=== PATIENT | female | born 1965 | race African-American/Black ===

== ENCOUNTER 2019-05-27 20:52 | Emergency (ER) | payer OTHER ==
[~2019-05-27] VITALS: Ht 180.3 cm; Wt 106.0 kg
[2019-05-27] MEDS ORDERED: SODIUM CHLORIDE 0.9% 1,000 ML IV ONE (22:00)
[2019-05-27] MEDS ORDERED: ONDANSETRON HCL 4MG/2ML INJ IV STA (22:00)
[2019-05-27 23:12] LABS: BASOPHILS % 0.6 % (0.0-2.0); EOSINOPHILS % 0.1 % (0.0-5.0); HEMATOCRIT. 41.2 % (36.0-48.0); HEMOGLOBIN. 13.4 g/dL (12.0-16.0); MEAN CORPUSCULAR HEMOGLOBIN 27.8 pg (28.0-32.0); MEAN CORPUSCULAR VOLUME 85.2 fL (81.0-99.0); MEAN PLATELET VOLUME 9.7 fl (7.4-10.4); MONOCYTES % 8.3 % (2.0-8.0); PLATELET 211 x1000/uL (130-400); RED BLOOD CELL COUNT 4.83 mill/uL (4.2-5.4); RED CELL DISTRIBUTION WIDTH 13.3 % (11.6-14.6)
[2019-05-27 23:24] LABS: CHLORIDE 95 mEq/L (98-107)
[2019-05-28] MEDS ORDERED: INSULIN LISPRO 100 UNITS/ML SUBCUT ONE (01:30)
[2019-05-28 05:07] VITALS: BP 93/60
== END 2019-05-28 06:04 | disposition short-term general hospital (02) ==
LOC: ER 20:52 → CANBEDREQ 05-28 07:02
DX: N17.9 Acute kidney failure, unspecified (principal); E86.0 Dehydration; E11.65 Type 2 diabetes mellitus with hyperglycemia; R55 Syncope and collapse; I10 Essential (primary) hypertension; Z98.890 Other specified postprocedural states; Z88.0 Allergy status to penicillin; W01.198A Fall on same level from slipping, tripping and stumbling with subsequent striking against other object, initial encounter; Y93.89 Activity, other specified; Y92.012 Bathroom of single-family (private) house as the place of occurrence of the external cause
CPT/HCPCS: 36415; 71045; 80053; 82962; 83880; 84484; 85025; 93005; 96361; 96372; 96374; 99285; J1815; J2405; J7030